=== PATIENT | female | born 1975 | race Caucasian/White ===

== ENCOUNTER 2016-05-23 16:46 | Emergency (ER) | payer OTHER ==
[2016-05-23 16:52] VITALS: BP 111/58; PULSE 93; TEMP 99.9; BMI 31.7
[2016-05-23] MEDS ORDERED: predniSONE 20 MG TABLET (UD) PO ONE (16:53)
[2016-05-23] MEDS ORDERED: ALBUTEROL SO4 2.5/IPRATROPIUM 0.5 INH SOL 3 ML VIAL.NEB. NEB ONE (16:54)
--- NOTE | 2016-05-23 16:56 | PDOC ---
Attending Attestation - Resident Resident Name: Marine Berkowitz - ED Attending Attestation I have performed the following: I have examined & evaluated the patient, The case was reviewed & discussed with the resident, I agree w/resident's findings & plan, Exceptions are as noted - HPI HPI: 05/23/16 16:55 The patient is a 40-year-old female, with a significant past medical history of mild intermittent asthma, who presents to the emergency department complaining of 2 days of dry cough, wheezing, chills and sore throat. She had an influenza vaccine this year. She also is complaining of chronic, intermittent "dizziness" which she has had for many months, and intends to speak with her primary care physician about. 05/23/16 17:05 05/23/16 17:10 - Physicial Exam PE: 05/23/16 16:55 She is well-appearing and in no acute distress She has post-inspiratory cough, no wheezing, no crackles Oral pharynx without exudate 05/23/16 17:32 Repeat lung exam after nebs with improved post-inspiratory cough, good air movement and no crackles - Medical Decision Making 05/23/16 16:56 The patient is well-appearing and in no acute distress Will administer Prednisone 60mg po as well as a Duoneb There is no clinical evidence of pneumonia Will send flu swab 05/23/16 17:33 Symptoms much improved after neb Influenze swap pending 05/23/16 18:08 The patient states that she feels "much better" and would like to go home Influenza swab continues to be pending It had not left the [place] lab yet when I called, but is now in route to [facility] The patient does not want to wait for results, and promises that she will call us in 2 hours for results She understands that she should be treated for influenza if the result is positive Clinical impression: Asthma exacerbation; resolved Viral upper respiratory tract infection I discussed the physical exam findings, ancillary test results and final diagnoses with the patient. I answered all of the patient's questions. The patient was satisfied with the care received and felt comfortable with the discharge plan and treatment plan. The patient will call their primary care physician within 24 hours to arrange follow-up and will return to the Emergency Department with any new, persistent or worsening symptoms. Discharge Disposition - Diagnosis Exacerbation of asthma, Upper respiratory tract infection - Discharge Dispostion Disposition: HOME Condition at time of disposition: Improved Last Admission D/C Date: 08/12/07 - Prescriptions Prescriptions: Prednisone [Deltasone -] 40 mg PO DAILY #5 tablet Albuterol Sulfate Inhaler - [Ventolin HFA Inhaler -] 2 inh PO Q4H PRN #1 PRN Reason: Asthma - Referrals Referrals: Sanchez Gaming MD [Staff Physician] - 7 days (See this physician for an evaluation of your chronic dizziness.) - Patient Instructions Printed Discharge Instructions: DI for Viral Upper Respiratory Infection -- Adult, DI for Asthma -- Adult Additional Instructions: Your influenza test is still pending. It is very important that you call us at [phone] at 8 PM for results. If it is positive, he will require treatment, and the emergency physician working at the time, can write you a prescription. Return to the emergency department immediately with ANY new, persistent or worsening symptoms. You MUST call and follow up with your doctor tomorrow. Please make sure your doctor reviews the results of your emergency department evaluation. - Post Discharge Activity Work/School Note: Back to Work
--- NOTE | 2016-05-23 17:16 | PDOC ---
History of Present Illness - History of Present Illness Initial Comments: 05/23/16 17:17 The patient is a 40 year old female with a past medical hx of dyspepsia who presents to the ED complaining of shortness of breath, wheezing, and a subjective fever for 2 days. The patient reports she has been using the nebulizer at home every three hours with no relief of symptoms. The patient reports associated cough (nonproductive), chills, and muscle aches. She reports she got the flu shot this year. The patient denies nasal congestion, sore throat , diarrhea, nausea, vomiting, dysuria. <Yancy Mccabe - Last Filed: 05/23/16 17:18> <Marine Berkowitz - Last Filed: 05/23/16 19:05> - General Chief Complaint: Cold Symptoms Stated Complaint: BODY ACHES,SOB Time Seen by Provider: 05/23/16 16:51 Past History <Yancy Mccabe - Last Filed: 05/23/16 17:18> - Past Medical History Asthma: Yes Diabetes: No HTN: No - Immunization History Td Vaccination: Yes - Psycho/Social/Smoking Cessation Hx Anxiety: No Suicidal Ideation: No Smoking Status: Yes Smoking History: Never smoked Years of Tobacco Use: 5 Have you smoked in the past 12 months: No Number of Cigarettes Smoked Daily: 0 Cigars Per Day: 0 Information on smoking cessation initiated: No 'Breaking Loose' booklet given: 12/10/13 Hx Alcohol Use: No Drug/Substance Use Hx: No Substance Use Type: None Hx Substance Use Treatment: No <Marine Berkowitz - Last Filed: 05/23/16 19:05> - Past Medical History Allergies/Adverse Reactions: Allergies Allergy/AdvReac Type Severity Reaction Status Date / Time Penicillins Allergy Intermediate Hives Verified 05/23/16 17:39 Home Medications: Ambulatory Orders Lactobacillus Acidophilus [Probiotic] 1 each PO DAILY 06/17/14 Lamotrigine 100 mg PO DAILY 06/17/14 Omeprazole [Prilosec] 40 mg PO DAILY 06/17/14 Albuterol Sulfate Inhaler - [Ventolin HFA Inhaler -] 2 inh IH Q4H PRN #1 inh Albuterol Sulfate Inhaler - [Ventolin HFA Inhaler -] 2 inh PO Q4H PRN #1 Prednisone [Deltasone -] 40 mg PO DAILY #5 tablet 05/23/16 Ranitidine [Zantac -] 150 mg PO DAILY #30 tablet 05/23/16 Review of Systems - Review of Systems Able to Perform ROS?: Yes Comments:: 05/23/16 17:18 CONSTITUTIONAL: +Fever, chills, muscle aches. Absent: diaphoresis, generalized weakness, malaise , loss of appetite HEENT: Absent: rhinorrhea, nasal congestion, throat pain, throat swelling, difficulty swallowing, mouth swelling, ear pain, eye pain, visual Changes CARDIOVASCULAR: Absent: chest pain, syncope, palpitations, irregular heart rate, lightheadedness , peripheral edema RESPIRATORY: +Shortness of breath, cough, wheezing. Absent: dyspnea with exertion, orthopnea , stridor, hemoptysis GASTROINTESTINAL: Absent: abdominal pain, abdominal distension, nausea, vomiting, diarrhea, constipation, melena, hematochezia GENITOURINARY: Absent: dysuria, frequency, urgency, hesitancy, hematuria, flank pain, genital pain MUSCULOSKELETAL: Absent: joint swelling SKIN: Absent: rash, itching, pallor HEMATOLOGIC/IMMUNOLOGIC: Absent: easy bleeding, easy bruising, lymphadenopathy, frequent infections ENDOCRINE: Absent: unexplained weight gain, unexplained weight loss, heat intolerance, cold intolerance NEUROLOGIC: Absent: headache, focal weakness or paresthesias, unsteady gait, seizure, mental status changes, bladder or bowel incontinence PSYCHIATRIC: Absent: anxiety, depression, suicidal or homicidal ideation, hallucinations. <Yancy Mccabe - Last Filed: 05/23/16 17:18> *Physical Exam - Vital Signs Last Vital Signs Temp Pulse Resp BP Pulse Ox 99.9 F H 93 H 16 111/58 97 05/23/16 16:50 05/23/16 16:50 05/23/16 16:50 05/23/16 16:50 05/23/16 16:50 - Physical Exam Comments: 05/23/16 17:18 GENERAL: Well developed, well nourished. Awake and alert. In no acute distress. HEENT: Normocephalic, atraumatic. PERRLA, EOMI. No conjunctival pallor. Sclera are non- icteric. Moist mucous membranes. Oropharynx is clear. NECK: Supple. Full ROM. No JVD. Carotid pulses 2+ and symmetric, without bruits. No thyromegaly. No lymphadenopathy. CARDIOVASCULAR: Regular rate and rhythm. No murmurs, rubs, or gallops. Distal pulses are 2+ and symmetric. PULMONARY: +Coarse breath sounds, post inspiratory cough. No evidence of respiratory distress. No wheezing, rales or rhonchi. ABDOMINAL: Soft. Non-tender. Non-distended. No rebound or guarding. No organomegaly. Normoactive bowel sounds. MUSCULOSKELETAL Normal range of motion at all joints. No bony deformities or tenderness. No CVA tenderness. EXTREMITIES: No cyanosis. No clubbing. No edema. No calf tenderness. SKIN: Warm and dry. Normal capillary refill. No rashes. No jaundice. NEUROLOGICAL: Alert, awake, appropriate. Cranial nerves 2-12 intact. No deficits to light touch and temperature in face, upper extremities and lower extremities. No motor deficits in the in face, upper extremities and lower extremities. Normoreflexic in the upper and lower extremities. Normal speech. Toes are downgoing bilaterally. Gait is normal without ataxia. PSYCHIATRIC: Cooperative. Good eye contact. Appropriate mood and affect. <Yancy Mccabe - Last Filed: 05/23/16 17:18> - Vital Signs Last Vital Signs Temp Pulse Resp BP Pulse Ox 99.9 F H 93 H 16 111/58 97 05/23/16 16:50 05/23/16 16:50 05/23/16 16:50 05/23/16 16:50 05/23/16 16:50 <Marine Berkowitz - Last Filed: 05/23/16 19:05> Medical Decision Making - Medical Decision Making 05/23/16 17:23 The pt presents to Ed complaining of chills, subjective fever, generalized muscle pain, SOB, wheezing. Possible viral upper respiratory infection. We ordered Prednisone 60 mg PO, Nirm[place], Influenza swap. Awaiting results. 05/23/16 17:43 She was given Tylenol. Influenza pending. 05/23/16 18:05 We are still waiting for Influenza to come back, it is a delay with the results. The pt will be discharged. We ordered Prednisone 40 mg for 5 days and Albuterol inhaler. She was asked to call in 1.5 hour for the flu swap results. She states that her breathing improved. <Marine Berkowitz - Last Filed: 05/23/16 19:05> *DC/Admit/Observation/Transfer <Yancy Mccabe - Last Filed: 05/23/16 17:18> - Discharge Dispostion Admit: No <Marine Berkowitz - Last Filed: 05/23/16 19:05> Diagnosis at time of Disposition: Asthma exacerbation, Upper respiratory tract infection - Discharge Dispostion Disposition: HOME Condition at time of disposition: Improved - Prescriptions Prescriptions: Prednisone [Deltasone -] 40 mg PO DAILY #5 tablet Albuterol Sulfate Inhaler - [Ventolin HFA Inhaler -] 2 inh PO Q4H PRN #1 PRN Reason: Asthma Albuterol Sulfate Inhaler - [Ventolin HFA Inhaler -] 2 inh IH Q4H PRN #1 inh PRN Reason: Short Of Breath/Wheezing Ranitidine [Zantac -] 150 mg PO DAILY #30 tablet - Referrals Referrals: Sanchez Gaming MD [Staff Physician] - 7 days (See this physician for an evaluation of your chronic dizziness.) - Patient Instructions Printed Discharge Instructions: DI for Asthma -- Adult, DI for Viral Upper Respiratory Infection -- Adult Additional Instructions: Your influenza test is still pending. It is very important that you call us at [phone] at 8 PM for results. If it is positive, he will require treatment, and the emergency physician working at the time, can write you a prescription. Return to the emergency department immediately with ANY new, persistent or worsening symptoms. You MUST call and follow up with your doctor tomorrow. Please make sure your doctor reviews the results of your emergency department evaluation. - Post Discharge Activity Work/School Note: Back to Work
[2016-05-23] MEDS ORDERED: ACETAMINOPHEN 325 MG TABLET (FP) PO ONE (17:37)
[2016-05-23] MEDS ORDERED: ACETAMINOPHEN 325 MG TABLET (FP) ONE (17:42)
== END 2016-05-23 18:25 | disposition home or self-care (01) ==
LOC: FER 16:46
PROC: 3E0F7GC Introduction of Other Therapeutic Substance into Respiratory Tract, Via Natural or Artificial Opening (ICD-10-PCS; principal; 2016-05-23)
DX: J06.9 Acute upper respiratory infection, unspecified (principal); J45.901 Unspecified asthma with (acute) exacerbation
CPT/HCPCS: 87804; 99281-25

== ENCOUNTER 2016-06-12 15:20 | Emergency (ER) | payer OTHER ==
[2016-06-12 15:44] VITALS: BP 110/62; PULSE 72; TEMP 98; BMI 31.4
[2016-06-12 16:11] LABS: URINE APPEARANCE Clear; URINE BILIRUBIN 1+ (NEGATIVE); URINE BLOOD Negative (NEGATIVE); URINE GLUCOSE (UA) Negative (NEGATIVE); URINE KETONE Negative (NEGATIVE); URINE LEUK ESTERASE Negative (NEGATIVE); URINE NITRITE Negative (NEGATIVE); URINE PROTEIN Trace (NEGATIVE); URINE UROBILINOGEN 0.2 E.U/dl (0.2-1.0)
--- NOTE | 2016-06-12 16:19 | PDOC ---
History of Present Illness - History of Present Illness Initial Comments: 06/12/16 17:30 Patient is a 40 year old female with significant medical hx of asthma and GERD who is presenting to the ED with suprapubic pain for several days. The patient describes her pain as a pressure with occasional shooting pain. Yesterday her pain began radiating to her lower quadrants and bilateral flank. It is worse while standing and walking but relieves when lying down. The patient reports she started a new job and rarely has time to use the bathroom or drink when she s at work. She notes that her urine has been dark and endorses some nausea but no vomiting. Denies any fever, chills, vomiting, diarrhea, hematuria, dysuria, vaginal discharge, or past abdominal surgeries. The patient does not get her menses due to IUD insertion. She is sexually active and has been with the same partner. Allergies: Penicillin PMD: Nathan Longoria MD <Jeannie Perez - Last Filed: 06/12/16 17:29> - General History Source: Patient Exam Limitations: No Limitations <Lisa Brooks - Last Filed: 06/13/16 12:56> - General Chief Complaint: Pain Stated Complaint: BLOATING & PELVIC PAIN RADIATING TO BACK Time Seen by Provider: 06/12/16 15:46 Past History <Jeannie Perez - Last Filed: 06/12/16 17:29> - Past Medical History Asthma: Yes Diabetes: No Disorders: Yes (GERD) HTN: No Psychiatric Problems: Yes - Reproductive History Is Patient Now?: Yes - Immunization History Td Vaccination: Yes - Psycho/Social/Smoking Cessation Hx Anxiety: No Suicidal Ideation: No Smoking Status: Yes Smoking History: Never smoked Years of Tobacco Use: 5 Have you smoked in the past 12 months: No Number of Cigarettes Smoked Daily: 0 Cigars Per Day: 0 'Breaking Loose' booklet given: 12/10/13 Hx Alcohol Use: Yes (OCCASIONAL) Drug/Substance Use Hx: No Substance Use Type: None Hx Substance Use Treatment: No <Lisa Brooks - Last Filed: 06/13/16 12:56> - Past Medical History Allergies/Adverse Reactions: Allergies Allergy/AdvReac Type Severity Reaction Status Date / Time Penicillins Allergy Intermediate Hives Verified 06/12/16 15:32 Home Medications: Ambulatory Orders Lactobacillus Acidophilus [Probiotic] 1 each PO DAILY 06/17/14 Lamotrigine 100 mg PO DAILY 06/17/14 Omeprazole [Prilosec] 40 mg PO DAILY 06/17/14 Albuterol Sulfate Inhaler - [Ventolin HFA Inhaler -] 2 inh IH Q4H PRN #1 inh Albuterol Sulfate Inhaler - [Ventolin HFA Inhaler -] 2 inh PO Q4H PRN #1 Prednisone [Deltasone -] 40 mg PO DAILY #5 tablet 05/23/16 Ranitidine [Zantac -] 150 mg PO DAILY #30 tablet 05/23/16 Review of Systems - Review of Systems Comments:: 06/12/16 17:30 GENERAL/CONSTITUTIONAL: No: fever, chills, weakness, loss of appetite. HEAD, EYES, EARS, NOSE AND THROAT: No: change in vision, ear pain, discharge, sore throat, throat swelling. CARDIOVASCULAR: No: chest pain, lightheadedness, palpitations, syncope RESPIRATORY: No: cough, shortness of breath, wheezing, hemoptysis, stridor. GASTROINTESTINAL: Yes: suprapubic pain, lower abdominal pain, nausea No: vomiting, abdominal cramping, diarrhea, rectal bleeding, constipation. GENITOURINARY: Yes: dark urine, bilateral flank pain No: dysuria, hematuria, frequency, urgency. MUSCULOSKELETAL: No: back pain, neck pain, joint pain, muscle swelling or pain SKIN AND BREASTS: No: lesions, pallor, rash or easy bruising. NEUROLOGIC: No: headache, vertigo, paresthesias, weakness ENDOCRINE: No: unexplained weight gain or loss HEMATOLOGIC/LYMPHATIC: No: anemia, easy bleeding, swelling nodes <Chris,Jeannie - Last Filed: 06/12/16 17:29> *Physical Exam - Vital Signs Last Vital Signs Temp Pulse Resp BP Pulse Ox 98.0 F 72 16 110/62 100 06/12/16 15:27 06/12/16 15:27 06/12/16 15:27 06/12/16 15:27 06/12/16 15:27 - Physical Exam Comments: 06/12/16 17:32 GENERAL: The patient is in no acute distress. HEAD: Normal with no signs of trauma. EYES: PERRLA, EOMI, sclera anicteric, conjunctiva clear. ENT: Ears normal, nares patent, oropharynx clear without exudates. Moist mucous membranes. NECK: Normal range of motion, supple without lymphadenopathy, JVD, or masses. LUNGS: Breath sounds equal, clear to auscultation bilaterally. No wheezes, and no crackles. HEART:Regular rate and rhythm, normal S1 and S2 without murmur, rub or gallop. ABDOMEN: Soft, mild suprapubic tenderness, normoactive bowel sounds. No guarding, no rebound. EXTREMITIES: Normal range of motion, no edema. No clubbing or cyanosis. No erythema, or tenderness. NEUROLOGICAL: Cranial nerves II through XII grossly intact. Normal speech. No focal neurological deficits. MUSCULOSKELETAL: Back non-tender to palpation, no CVA tenderness SKIN: Warm, Dry, normal turgor, no rashes or lesions noted. <Jeannie Perez - Last Filed: 06/12/16 17:29> - Vital Signs Last Vital Signs Temp Pulse Resp BP Pulse Ox 98.0 F 72 16 110/62 100 06/12/16 15:27 06/12/16 15:27 06/12/16 15:27 06/12/16 15:27 06/12/16 15:27 <Lisa Brooks - Last Filed: 06/13/16 12:56> ED Treatment Course - ADDITIONAL ORDERS Additional order review: Laboratory Results 06/12/16 15:27 Urine Color Yellow Urine Appearance Clear Urine pH 5.0 D Ur Specific [place] >= 1.030 H Urine Protein Trace Urine Glucose (UA) Negative Urine Ketones Negative Urine Blood Negative Urine Nitrite Negative Urine Bilirubin 1+ H Urine Urobilinogen 0.2 e.u/dl Ur Leukocyte Esterase Negative Urine HCG, Qual Negative <Jeannie Perez - Last Filed: 06/12/16 17:29> Medical Decision Making - Medical Decision Making 06/12/16 16:18 A portion of this note was documented by scribe services under my direction. I have reviewed the details of the note, within reason, and agree with the documentation with the following case summary and management plan written by me. Nursing documentation reviewed and incorporated into medical decision making This patient is a 40 yo F h/o asthma and GERD who presents to the ED with a suprapubic pain for 5 or 6 days that worsens Today while at work, she developed worse suprapubic pressure associated with bilateral flank pain She denies hematuria, dysruia, vaginal discharge No fevers or chills (+) Nausea, no vomiting She left work early, went home She removed a one piece undergarment that she was wearing and her pain improved By the time of my evaluation, pt state she improved The patient does not get her menses due to IUD insertion. She is sexually active and has been with the same partner. On examination Pt states pain has largely resolved On examination: no abdominal tenderness to palpation, no guarding, no rebound Pt would like to go home She believes this is due to gas and the fact that her under garment was too tight Will discharge to home Will ask pt to return to the ER for any other concerns or complaints Follow up with PMD in 1 week <Lisa Brooks - Last Filed: 06/13/16 12:56> *DC/Admit/Observation/Transfer - Attestations Scribe Attestion: 06/12/16 17:33 Documentation prepared by Jeannie Perez, acting as medical staffing coordinator for Lisa Brooks MD. <Jeannie Perez - Last Filed: 06/12/16 17:29> - Discharge Dispostion Admit: No <Lisa Brooks - Last Filed: 06/13/16 12:56> Diagnosis at time of Disposition: Abdominal bloating - Discharge Dispostion Disposition: HOME Condition at time of disposition: Stable - Referrals Referrals: Mike Longoria [Primary Care Provider] - - Patient Instructions Printed Discharge Instructions: DI for Abdominal Pain-Adult, Intestinal Gas ( Alternative Therapy) Additional Instructions: Sariah Thank you for coming in to the ER today Please avoid that one piece thing you wore to work today Please COME BACK to the ER for fevers, chills, new symptoms, nausea, vomiting, inability to eat or any new symptoms that make you concerned Please follow up with your primary doctor you can try simethicone (Gas X) for abdominal bloating to see if that helps We will have the results of your urine culture in about 2-3 days If it is positive, we will call you!!
[2016-06-12 16:21] LABS: URINE COLOR YELLOW
== END 2016-06-12 16:41 | disposition home or self-care (01) ==
LOC: FER 15:20
DX: R14.0 Abdominal distension (gaseous) (principal); K21.9 Gastro-esophageal reflux disease without esophagitis; J45.909 Unspecified asthma, uncomplicated; F99 Mental disorder, not otherwise specified; Z87.891 Personal history of nicotine dependence
CPT/HCPCS: 81003; 84703; 87086; 99282-25

== ENCOUNTER 2021-06-21 17:42 | Emergency (ER) | payer OTHER ==
[2021-06-21 17:53] VITALS: BP 111/59; PULSE 99; TEMP 99.1; BMI 34.0
[2021-06-21] MEDS ORDERED: ALBUTEROL SO4 2.5/IPRATROPIUM 0.5 INH SOL 3 ML VIAL.NEB. NEB ONE (18:02)
[2021-06-21] MEDS: ALBUTEROL SO4 2.5/IPRATROPIUM 0.5 INH SOL 3 ML VIAL.NEB. NEB SCH ×3 (18:07→18:37)
[2021-06-21] MEDS ORDERED: ACETAMINOPHEN 500 MG TABLET (FP) PO ONE (18:08)
[2021-06-21] MEDS ORDERED: ACETAMINOPHEN 325 MG TABLET (FP) ONE (18:12)
[2021-06-23 14:13] LABS: SARS-CoV-2 NAA Not Detected (Not Detected)
== END 2021-06-21 18:56 | disposition home or self-care (01) ==
LOC: FER 17:42
PROC: 3E0F7GC Introduction of Other Therapeutic Substance into Respiratory Tract, Via Natural or Artificial Opening (ICD-10-PCS; principal; 2021-06-21)
DX: R53.1 Weakness (principal); J09.X2 Influenza due to identified novel influenza A virus with other respiratory manifestations
CPT/HCPCS: 87804; 99283-25; C9803-CS; U0003; U0005

== ENCOUNTER 2021-08-02 17:33 | Emergency (ER) | payer OTHER ==
[2021-08-02] MEDS ORDERED: ALBUTEROL SO4 0.042% IH SOL 1.25 MG/3 ML VIAL.NEB NEB ONE ×2 (17:43→18:31)
[2021-08-02] MEDS ORDERED: predniSONE 20 MG TABLET (UD) PO ONE (17:43)
[2021-08-02 17:48] VITALS: BP 137/84; PULSE 100; TEMP 99; BMI 30.9
[2021-08-02] MEDS ORDERED: predniSONE 20 MG TABLET (UD) ONE (18:12)
== END 2021-08-02 18:52 | disposition home or self-care (01) ==
LOC: FER 17:33
PROC: 3E0F7GC Introduction of Other Therapeutic Substance into Respiratory Tract, Via Natural or Artificial Opening (ICD-10-PCS; principal; 2021-08-02)
DX: J45.901 Unspecified asthma with (acute) exacerbation (principal)
CPT/HCPCS: 99284-25

== ENCOUNTER 2021-10-30 18:43 | Emergency (ER) | payer OTHER ==
[2021-10-30 19:16] VITALS: BP 120/73; PULSE 86; RESP 18; TEMP 97.8; BMI 31.7
== END 2021-10-30 20:26 | disposition home or self-care (01) ==
LOC: FER 18:43
DX: S61.452A Open bite of left hand, initial encounter (principal); W54.0XXA Bitten by dog, initial encounter
CPT/HCPCS: 99281-25

== ENCOUNTER 2023-08-31 16:34 | Observation (INO) | payer OTHER ==
[2023-08-31] MEDS ORDERED: ACETAMINOPHEN 1000 MG/100 ML BAG IVPB ONE (17:56)
[2023-08-31] MEDS ORDERED: ACETAMINOPHEN INJECTION 100 ML IVPB ONE (18:35)
[2023-08-31] MEDS: ACETAMINOPHEN 1000 MG/100 ML BAG IVPB ONE (18:37)
[2023-08-31] MEDS: SODIUM CHLORIDE 0.9% 500 ML INFUS.BAG IV ONE (18:37)
[2023-08-31 18:44] LABS: HEMATOCRIT 35.8 % (32.4-45.2); HEMOGLOBIN 11.7 G/dL (10.7-15.3); MCHC 32.7 g/dl (32.0-36.0); MEAN CELL VOLUME 94.9 fl (80-96); MEAN PLT VOLUME 7.9 fl (7.5-11.1); PLATELET COUNT 386.2 10^3/uL (134-434); RBC 3.77 10^6/uL (3.60-5.2); RDW 13.5 % (11.6-15.6)
[2023-08-31 19:00] LABS: ALBUMIN 3.9 g/dl (3.4-5.0); BILIRUBIN,TOTAL 0.4 mg/dl (0.2-1); CALCIUM 9.4 mg/dl (8.5-10.1); CREATININE 0.7 mg/dl (0.6-1.3); TOT PROT 6.7 g/dl (6.4-8.2)
[2023-08-31 19:01] LABS: PLATELET ESTIMATE ADEQUATE
[2023-08-31] MEDS ORDERED: FOLIC ACID 5 MG/1 ML ONE (23:05)
[2023-08-31] MEDS ORDERED: MULTIVIT INJ. ADULT COMBO WITH VIT K 1 COMBO 10 ML VIAL IV ONE (23:05)
[2023-08-31] MEDS ORDERED: THIAMINE HCL 200 MG/2 ML VIAL ONE (23:05)
[2023-08-31] MEDS: FOLIC ACID INJECTION - 1 MG, THIAMINE HCL 100 MG, MULTIVIT INJECTION ADULT 10 ML in SOD... IVPB ONE (23:12)
[2023-08-31] MEDS ORDERED: DOCUSATE SODIUM 100 MG CAPSULE (FP) PO PRN (23:27)
[2023-09-01 00:23] VITALS: BMI 33.3
[2023-09-01] MEDS: ACETAMINOPHEN 1000 MG/100 ML BAG IVPB PRN (01:48)
[2023-09-01] MEDS ORDERED: ALBUTEROL SO4 HFA INHALER IH PRN (03:01)
[2023-09-01 08:27] LABS: INR 1.01 (0.83-1.09); PROTHROMBIN TIME (PATIENT) 11.5 SEC (9.7-13.0)
[2023-09-01 08:29] LABS: ACTIVATED PTT 39.5 SECONDS (25.2-36.5)
[2023-09-01 08:52] LABS: CALCIUM 8.6 mg/dl (8.5-10.1); CREATININE 0.6 mg/dl (0.6-1.3); PHOSPHOROUS 2.8 (2.5-4.9); POTASSIUM 3.7 mmol/L (3.5-5.1)
[2023-09-01 09:55] LABS: BASO % 1.4 % (0-2.0); EOS % 6.4 % (0-4.5); HEMATOCRIT 31.8 % (32.4-45.2); HEMOGLOBIN 10.9 GM/dL (10.7-15.3); MCH 31.7 pg (25.7-33.7); MCHC 34.2 g/dl (32.0-36.0); MEAN CELL VOLUME 92.8 fl (80-96); MEAN PLT VOLUME 8.4 fl (7.5-11.1); MONO % 6.2 % (3.8-10.2); PLATELET COUNT 380 10^3/uL (134-434); RBC 3.42 M/mm3 (3.60-5.2); RDW 13.4 % (11.6-15.6); WHITE BLOOD COUNT 5.7 K/mm3 (4.0-10.0)
[2023-09-01] MEDS: PANTOPRAZOLE 20 MG TABLET PO SCH (09:56)
[2023-09-01] MEDS: DEXTROSE 5%-0.45% SALINE 1,000 ML IV SCH (12:06)
[2023-09-01] MEDS: hydrOXYzine PAMOATE 25 MG CAPSULE (FP) PO ONE (14:28)
[2023-09-01 15:00] VITALS: BP 121/60; PULSE 70; RESP 18; TEMP 97.9
== END 2023-09-01 16:09 | disposition left against medical advice (07) ==
LOC: FER 16:34 → FM/S 23:30
PROVIDERS: ADMIT Internal Medicine; ATTEND Internal Medicine
PROC: 3E033NZ Introduction of Analgesics, Hypnotics, Sedatives into Peripheral Vein, Percutaneous Approach (ICD-10-PCS; principal; 2023-08-31)
PROC: 3E033GC Introduction of Other Therapeutic Substance into Peripheral Vein, Percutaneous Approach (ICD-10-PCS; 2023-08-31)
PROC: 3E0337Z Introduction of Electrolytic and Water Balance Substance into Peripheral Vein, Percutaneous Approach (ICD-10-PCS; 2023-08-31)
DX: R10.84 Generalized abdominal pain (principal); Z98.84 Bariatric surgery status; F31.9 Bipolar disorder, unspecified; R10.31 Right lower quadrant pain; K21.9 Gastro-esophageal reflux disease without esophagitis; J45.909 Unspecified asthma, uncomplicated; E66.9 Obesity, unspecified; Z98.890 Other specified postprocedural states; Z87.738 Personal history of other specified (corrected) congenital malformations of digestive system; Z88.0 Allergy status to penicillin
CPT/HCPCS: 36415; 74177-TC; 80048; 80053; 81003; 81015; 83605; 83735; 84100; 84703; 85025; 85027; 85610; 85730; 87081; 87086; 96365; 96367; 96375; 96376; 99285-25; G0378; J0131; Q9967